=== PATIENT | male | born 1990 | race Two or more races ===

== ENCOUNTER 2018-06-14 19:01 | Emergency (ER) | payer SELFPAY ==
[~2018-06-14] VITALS: Ht 175.3 cm; Wt 90.0 kg
[2018-06-14 19:07] VITALS: BP 116/69
== END 2018-06-14 20:00 | disposition left against medical advice (07) ==
LOC: ER 19:01
DX: M25.511 Pain in right shoulder (principal); Z53.21 Procedure and treatment not carried out due to patient leaving prior to being seen by health care provider